=== PATIENT | male | born 1980 | race Caucasian/White ===

== ENCOUNTER 2017-03-09 18:37 | Emergency (ER) | payer MEDICAID ==
[~2017-03-09] VITALS: Ht 172.7 cm; Wt 90.7 kg
[2017-03-09 18:41] VITALS: BP 137/79
--- NOTE | 2017-03-09 18:44 | NUR ---
Patient ambulated to bed 08.
--- NOTE | 2017-03-09 18:45 | NUR ---
36/M C/O PRODUCTIVE COUGH, OVERALL BODY ACHE, SORE THROAT AND CHEST PRESSURE WHILE COUGHING. REPORTS YELLOW/BROWN PHLEGM. PT DID NOT RECEIVE FLU SHOT THIS YEAR. DENIES PMH AND RX. PT FEBRILE WITH RUNNY NOSE/CONGESTION. ALL LUNG SOUNDS CBTA, SATS 98 RA, HR 87. SKIN IS PINK/WARM/DRY; AAOX4 WITH EVEN AND STEADY GAIT; HR EVEN AND REGULAR; PATIENT POSITIONED FOR COMFORT; HOB ELEVATED; BEDRAILS UP X2; BED DOWN. ER MD MADE AWARE OF PT STATUS.
--- NOTE | 2017-03-09 19:10 | NUR ---
Patient being evaluated by physician at bedside.
[2017-03-09] MEDS ORDERED: IBUPROFEN 400 MG TAB PO ONE (20:05)
--- NOTE | 2017-03-09 20:15 | NUR ---
Patient discharged with v/s stable. Written and verbal after care instructions given and explained. Patient alert, oriented and verbalized understanding of instructions. Ambulatory with steady gait. All questions addressed prior to discharge. ID band removed. Patient advised to follow up with PMD. Rx of NAPROSYN, DEXTROMETHORPHAN HYDROBROMIDE/PROMETHAZINE HYDROCHLORIDE given. Patient educated on indication of medication including possible reaction and side effects. Opportunity to ask questions provided and answered.
[2017-03-09 21:10] VITALS: BP 119/72
== END 2017-03-09 20:15 | disposition home or self-care (01) ==
LOC: MED 18:37
DX: B34.9 Viral infection, unspecified (principal); Z71.6 Tobacco abuse counseling
CPT/HCPCS: 36415; 71010; 87804; 99285

== ENCOUNTER 2017-11-08 12:40 | Emergency (ER) | payer MEDICAID ==
[~2017-11-08] VITALS: Ht 175.3 cm; Wt 106.6 kg
[2017-11-08 13:12] VITALS: BP 143/87
--- NOTE | 2017-11-08 13:12 | NUR ---
patient ambulated to rm 3 with steady gait.
--- NOTE | 2017-11-08 13:18 | NUR ---
gave report to Renate COX
--- NOTE | 2017-11-08 13:18 | NUR ---
Notified er md kincaid of patient's status.
--- NOTE | 2017-11-08 13:30 | NUR ---
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 Patient states left sided rib pain increased with inspiration. Swelling to left wrist. Patient denies any LOC or changes in vision. Pt reports that he was wearing a hard hat when he fell. Pt is gcs=15. RR are even and unlabored. Lungs bilaterally clear. A&O x 4. Cms intact. ER MD Costa notified. Pt needs met. Safety precautions in place. Will continue to monitor.
[2017-11-08] MEDS ORDERED: NACL 0.9% 2,000 ML IV SCH (13:49)
[2017-11-08] MEDS ORDERED: fentaNYL 0.05 MG/ML VIAL IVP ONE (13:50)
--- NOTE | 2017-11-08 14:08 | NUR ---
pt taken to CT at this time without incident
[2017-11-08 14:22] LABS: BASOPHILS % (AUTO) 0.3 % (0.0-2.0); EOSINOPHILS # (AUTO) 0.3 K/uL (0-0.4); EOSINOPHILS % (AUTO) 3.3 % (0.0-4.0); HEMATOCRIT 44.5 % (36-52); LYMPHOCYTES # (AUTO) 1.4 K/uL (2.0-11.5); MEAN CORPUSCULAR HEMOGLOBIN 30 pg (27-31); MEAN CORPUSCULAR HGB CONC 34 g/dL (33-37); MEAN CORPUSCULAR VOLUME 87.6 fL (80-94); MONOCYTES # (AUTO) 0.4 K/uL (0.8-1.0); MONOCYTES % (AUTO) 4.4 % (1.7-9.3); NEUTROPHILS # (AUTO) 6.5 K/uL (1.8-7.7); PLATELET COUNT (AUTO) 121 K/uL (140-450); RED BLOOD CELL COUNT(AUTO) 5.08 MIL/uL (4.20-6.10); RED CELL DISTRIBUTION WIDTH 13.8 % (11.6-13.7); WHITE BLOOD COUNT (AUTO) 8.5 K/uL (4.8-10.8)
[2017-11-08 14:43] LABS: PROTHROMBIN TIME 10.1 secs (10.8-13.4)
[2017-11-08 14:47] LABS: CARBON DIOXIDE 28.5 mmol/L (21-32); POTASSIUM 3.5 mmol/L (3.5-5.1)
[2017-11-08 14:52] LABS: ALBUMIN 3.5 g/dL (3.4-5.0); TOTAL BILIRUBIN 0.3 mg/dL (0.0-1.0)
--- NOTE | 2017-11-08 16:29 | NUR ---
spoke with pt and his . Patient discharged with v/s stable. Written and verbal after care instructions given and explained. Patient alert, oriented and verbalized understanding of instructions. Ambulatory with steady gait. All questions addressed prior to discharge. ID band removed. Patient advised to follow up with PMD. Rx of voltaren given. Patient educated on indication of medication including possible reaction and side effects. Opportunity to ask questions provided and answered.
[2017-11-08 18:18] VITALS: BP 132/88
== END 2017-11-08 16:29 | disposition home or self-care (01) ==
LOC: MED 12:40
DX: S63.502A Unspecified sprain of left wrist, initial encounter (principal); S20.212A Contusion of left front wall of thorax, initial encounter; S00.03XA Contusion of scalp, initial encounter; W11.XXXA Fall on and from ladder, initial encounter; Y93.89 Activity, other specified; Y99.8 Other external cause status; Y92.89 Other specified places as the place of occurrence of the external cause
CPT/HCPCS: 36415; 70450; 71250; 72125; 73110; 74176; 80053; 85025; 85610; 85730; 86886; 86900; 86901; 93005; 96374; 99285; J3010

== ENCOUNTER 2018-01-29 11:41 | Emergency (ER) | payer MEDICARE ==
[~2018-01-29] VITALS: Ht 172.7 cm; Wt 105.7 kg
[2018-01-29 11:57] VITALS: BP 131/86
--- NOTE | 2018-01-29 12:00 | NUR ---
37Y/M BIB SELF SEND BY HIS DENTIST FOR C/O LT TOOTH ACHE WTIH SWOLLEN CHEEKS, SQUEEZED THIS MORNING WITH DISCHARGE; BED DOWN; BEDRAIL UP X 1; ER MD AWARE AND NOTIFIED OF PT STATUS. HX; DENIES RX; DENIES
--- NOTE | 2018-01-29 12:10 | NUR ---
Patient being evaluated by physician at bedside.
[2018-01-29] MEDS ORDERED: LIDOCAINE 1% 500 MG/50 ML VIAL INJ SCH (12:30)
[2018-01-29 13:13] VITALS: BP 128/83
--- NOTE | 2018-01-29 13:13 | NUR ---
Patient discharged with v/s stable. Written and verbal after care instructions given and explained. Patient alert, oriented and verbalized understanding of instructions. Ambulatory with steady gait. All questions addressed prior to discharge. ID band removed. Patient advised to follow up with PMD. Rx of naprosyn and norco given. Patient educated on indication of medication including possible reaction and side effects. Opportunity to ask questions provided and answered.
== END 2018-01-29 13:13 | disposition home or self-care (01) ==
LOC: MED 11:41
DX: K04.7 Periapical abscess without sinus (principal); F17.210 Nicotine dependence, cigarettes, uncomplicated
CPT/HCPCS: 41800; 99283; J2001

== ENCOUNTER 2018-02-18 07:35 | Emergency (ER) | payer MEDICARE ==
[~2018-02-18] VITALS: Ht 172.7 cm; Wt 102.5 kg
--- NOTE | 2018-02-18 07:38 | NUR ---
PATIENT AMBULATED TO BED 5 AT THIS TIME.
[2018-02-18 07:40] VITALS: BP 128/94
--- NOTE | 2018-02-18 07:41 | NUR ---
37YO M TO ER FOR L MIDDLE FINGER LAC AT 0700,BANDAGER REMOVED. FULL THIKNESS, L FINGER SKIN FLAP. 4X4 GAUZE AND PRESSURE APPLIED, BLEEDING UNDER CONTROL. L HAND ELEVATED. PT STATES THAT FINGER WAS CAUGHT IN CLOSING DOOR ON IT. NO OTHER MEDICAL C/O AT THIS TIME. WILL CONTINUE TO MONITOR, ER MADE AWARE. PT POSITIONED FOR COMFORT HX: DENIES MED: NONE
--- NOTE | 2018-02-18 07:55 | NUR ---
Patient being evaluated by physician at bedside.
[2018-02-18] MEDS ORDERED: cefTRIAXone 1,000 MG in LIDOCAINE 1% ***ER ONLY *** 2.1 ML IM ONE (08:00)
[2018-02-18] MEDS ORDERED: MORPHINE SULFATE 2 MG/ML SYR IM ONE (08:00)
[2018-02-18] MEDS ORDERED: NEOMYCIN/POLYMYXIN/BACITRACIN 0.9 GM/1 PKT TP ONE ×2 (08:00)
[2018-02-18] MEDS ORDERED: LIDOCAINE 1% 500 MG/50 ML VIAL INJ ONE (08:00)
--- NOTE | 2018-02-18 08:06 | NUR ---
XRAY AT BEDSIDE
[2018-02-18] MEDS ORDERED: cefTRIAXone 1,000 MG VIAL ONE (08:08)
--- NOTE | 2018-02-18 08:25 | NUR ---
EMT AT BEDSIDE FOR LAC CLEANING
--- NOTE | 2018-02-18 08:35 | NUR ---
DR GRIFFITH AT BEDSIDE FOR LAC SUTURING
--- NOTE | 2018-02-18 08:50 | NUR ---
FAMILY AT BEDSIDE
[2018-02-18 10:23] VITALS: BP 125/91
--- NOTE | 2018-02-18 10:23 | NUR ---
Patient discharged with v/s stable. Written and verbal after care instructions given and explained. Patient alert, oriented and verbalized understanding of instructions. Ambulatory with steady gait. All questions addressed prior to discharge. ID band removed. Patient advised to follow up with PMD. Rx of ultram, motrin, clindamycin given. Patient educated on indication of medication including possible reaction and side effects. Opportunity to ask questions provided and answered.
== END 2018-02-18 10:23 | disposition home or self-care (01) ==
LOC: MED 07:35
DX: S61.213A Laceration without foreign body of left middle finger without damage to nail, initial encounter (principal); F17.210 Nicotine dependence, cigarettes, uncomplicated; W22.8XXA Striking against or struck by other objects, initial encounter; Y93.89 Activity, other specified; Y92.89 Other specified places as the place of occurrence of the external cause; Y99.0 Civilian activity done for income or pay
CPT/HCPCS: 12002; 73140; 90471; 90715; 96372; 99284; J0696; J2001; J2270; Q0092

== ENCOUNTER 2018-08-28 15:12 | Emergency (ER) | payer BC, MEDICARE ==
[~2018-08-28] VITALS: Ht 175.3 cm; Wt 98.4 kg
[2018-08-28 15:16] VITALS: BP 128/72
--- NOTE | 2018-08-28 15:22 | NUR ---
PT AMBULATED TO ED BED 06
[2018-08-28] MEDS ORDERED: TETRACAINE HCL/PF 0.5% OPTH 4 ML BTL OP ONE (15:30)
[2018-08-28] MEDS ORDERED: FLUORESCEIN OPTH STRIP 0.6 MG OP ONE (15:30)
--- NOTE | 2018-08-28 15:38 | NUR ---
PT STATED POSSIBLE PIECE OF METAL GOT INTO HIS EYE WHILE WORKING SINCE WEDNESDAY. RT EYE APPEARS RED AND IRRITATED, TEARING. PT STATES IT HURTS TO OPEN EYE. PATIENT STATES PAIN OF 9/10 AT THIS TIME; VSS; PATIENT POSITIONED FOR COMFORT; HOB ELEVATED; BEDRAILS UP X1; BED DOWN. ER MD MADE AWARE OF PT STATUS.
[2018-08-28 15:51] VITALS: BP 128/72
--- NOTE | 2018-08-28 15:52 | NUR ---
Patient discharged with v/s stable. Written and verbal after care instructions given and explained. Patient alert, oriented and verbalized understanding of instructions. Ambulatory with steady gait. All questions addressed prior to discharge. ID band removed. Patient advised to follow up with PMD. Rx of TOBRAMYCIN AND NAPROSYN given. Patient educated on indication of medication including possible reaction and side effects. Opportunity to ask questions provided and answered.
== END 2018-08-28 15:52 | disposition home or self-care (01) ==
LOC: MED 15:12
DX: T15.01XA Foreign body in cornea, right eye, initial encounter (principal); F17.200 Nicotine dependence, unspecified, uncomplicated; X58.XXXA Exposure to other specified factors, initial encounter; Y93.89 Activity, other specified; Y92.89 Other specified places as the place of occurrence of the external cause; Y99.8 Other external cause status
CPT/HCPCS: 65222; 90715; 99284

== ENCOUNTER 2018-11-23 01:10 | Emergency (ER) | payer BC ==
[~2018-11-23] VITALS: Ht 175.3 cm; Wt 86.2 kg
--- NOTE | 2018-11-23 01:12 | NUR ---
PT AMBULATORY TO BED WITH 2 SONS
[2018-11-23 01:13] VITALS: BP 110/66
--- NOTE | 2018-11-23 01:13 | NUR ---
38/M PRESENTS TO ED WITH SONS, C/O CONSTANT SHARP BL LOWER QUADRANT PAIN AND BL LOWER BACK PAIN, X3 DAYS. PT ALSO C/O DIARRHEA X3 DAYS. REPORTS TOLERABLE NAUSEA UPON ARRIVAL TO ED, DENIES VOMITING. DENIES FEVER/CHILLS, OR DYSURIA. DENIES INJURY/TRAUMA. AOX4, SKIN NORMAL WARM AND DRY, RR EVEN AND UNLABORED. BS HYPOACTIVE X4, ABD SOFT ROUND TENDER TO BL LOWER QUADRANT AND LUQ. DENIES MED HX. 'S RX TRAMADOL WITHOUT RELIEF
--- NOTE | 2018-11-23 01:14 | NUR ---
PT STATED THAT HE IS DRIVEN BY SON TO ED
[2018-11-23] MEDS ORDERED: NACL 0.9% 1,000 ML IV ONE (01:30)
[2018-11-23] MEDS ORDERED: LOPERAMIDE 2 MG CAP PO ONE (01:30)
[2018-11-23] MEDS ORDERED: MORPHINE SULFATE 4 MG/ML SYR IVP ONE (01:30)
[2018-11-23 01:42] LABS: BASOPHILS # (AUTO) 0.1 K/uL (0.00-0.22); BASOPHILS % (AUTO) 2.7 % (0.0-2.0); EOSINOPHILS # (AUTO) 0.2 K/uL (0-0.4); EOSINOPHILS % (AUTO) 4.3 % (0.0-4.0); HEMATOCRIT 43.5 % (36-52); HEMOGLOBIN 14.8 g/dL (12.0-18.0); LYMPHOCYTES # (AUTO) 1.1 K/uL (2.0-11.5); MEAN CORPUSCULAR HEMOGLOBIN 30 pg (27-31); MEAN CORPUSCULAR HGB CONC 34 g/dL (33-37); MONOCYTES # (AUTO) 0.8 K/uL (0.8-1.0); NEUTROPHILS # (AUTO) 2.8 K/uL (1.8-7.7); NEUTROPHILS % (AUTO) 55.1 % (42.2-75.2); PLATELET COUNT (AUTO) 117 K/uL (140-450); WHITE BLOOD COUNT (AUTO) 5.1 K/uL (4.8-10.8)
--- NOTE | 2018-11-23 01:46 | NUR ---
PT TAKEN TO XR
[2018-11-23 01:49] LABS: ANION GAP 10.1 (8-16); CARBON DIOXIDE 27.2 mmol/L (21-32); POTASSIUM 3.3 mmol/L (3.5-5.1)
[2018-11-23 01:54] LABS: ALBUMIN 3.1 g/dL (3.4-5.0); MONOCYTES % (AUTO) 15.9 % (1.7-9.3); TOTAL BILIRUBIN 0.3 mg/dL (0.0-1.0)
--- NOTE | 2018-11-23 01:55 | NUR ---
PT BACK FROM XR
[2018-11-23] MEDS ORDERED: POTASSIUM CHLORIDE 10 MEQ TABER PO ONE (02:05)
[2018-11-23 02:32] VITALS: BP 119/66
--- NOTE | 2018-11-23 02:32 | NUR ---
Patient discharged with v/s stable. Written and verbal after care instructions given and explained. Patient alert, oriented and verbalized understanding of instructions. Ambulatory with steady gait. All questions addressed prior to discharge. ID band removed. Patient advised to follow up with PMD. Rx of IMODIUM, ZOFRAN given. Patient educated on indication of medication including possible reaction and side effects. Opportunity to ask questions provided and answered.
== END 2018-11-23 02:32 | disposition home or self-care (01) ==
LOC: MED 01:10
DX: T62.8X1A Toxic effect of other specified noxious substances eaten as food, accidental (unintentional), initial encounter (principal); E87.6 Hypokalemia; R10.30 Lower abdominal pain, unspecified; R19.7 Diarrhea, unspecified; Y92.89 Other specified places as the place of occurrence of the external cause
CPT/HCPCS: 36415; 74018; 80053; 85025; 96361; 96374; 99284; J2270; J7030

== ENCOUNTER 2019-01-19 03:23 | Inpatient (IN) | payer BC ==
[~2019-01-19] VITALS: Ht 175.3 cm; Wt 93.4 kg
[2019-01-19 03:28] VITALS: BP 119/85
--- NOTE | 2019-01-19 03:34 | NUR ---
PT AMBULATED TO BED 11
--- NOTE | 2019-01-19 03:41 | NUR ---
PATIENT PRESENTS TO ED WITH BLOOD IN STOOL X1 MONTH, C/O ABDOMINAL PAIN. +NAUSEA AND DIARRHEA. DENIES FEVER AND CHILLS. NKA NO PHM, SKIN IS PINK/WARM/DRY; AAOX4 WITH EVEN AND STEADY GAIT; LUNGS CLEAR BL; HR EVEN AND REGULAR; PT DENIES ANY FEVER, CP, SOB, OR COUGH AT THIS TIME; PATIENT STATES PAIN OF 6/10 AT THIS TIME; VSS; PATIENT POSITIONED FOR COMFORT; HOB ELEVATED; BEDRAILS UP X2; BED DOWN. ER MD MADE AWARE OF PT STATUS.
[2019-01-19] MEDS ORDERED: NACL 0.9% 1,000 ML IV ONE (04:27)
[2019-01-19] MEDS ORDERED: KETOROLAC 30 MG/ML VIAL IVP ONE (04:30)
--- NOTE | 2019-01-19 05:14 | NUR ---
BLOOD DRAWN AND TAKEN TO LAB.
[2019-01-19 05:23] LABS: BASOPHILS % (AUTO) 0.2 % (0.0-2.0); EOSINOPHILS % (AUTO) 0.8 % (0.0-4.0); HEMOGLOBIN 11.9 g/dL (12.0-18.0); LYMPHOCYTES # (AUTO) 2.1 K/uL (2.0-11.5); LYMPHOCYTES % (AUTO) 41.6 % (20.5-51.1); MEAN CORPUSCULAR HEMOGLOBIN 30 pg (27-31); MEAN CORPUSCULAR HGB CONC 34 g/dL (33-37); MEAN CORPUSCULAR VOLUME 87.1 fL (80-94); MONOCYTES # (AUTO) 0.5 K/uL (0.8-1.0); MONOCYTES % (AUTO) 9.9 % (1.7-9.3); NEUTROPHILS # (AUTO) 2.4 K/uL (1.8-7.7); NEUTROPHILS % (AUTO) 47.5 % (42.2-75.2); PLATELET COUNT (AUTO) 184 K/uL (140-450); RED BLOOD CELL COUNT(AUTO) 4.02 MIL/uL (4.20-6.10); RED CELL DISTRIBUTION WIDTH 15.1 % (11.6-13.7)
[2019-01-19 05:40] LABS: ALBUMIN 2.8 g/dL (3.4-5.0); ANION GAP 6.7 (8-16); CARBON DIOXIDE 32.4 mmol/L (21-32); CREATININE 0.9 mg/dL (0.7-1.3); POTASSIUM 3.1 mmol/L (3.5-5.1); TOTAL BILIRUBIN 0.4 mg/dL (0.0-1.0)
[2019-01-19] MEDS ORDERED: metroNIDAZOLE 500 MG/NS PREMIX 100 ML IV ONE (05:45)
[2019-01-19] MEDS ORDERED: POTASSIUM CHLORIDE 10 MEQ TABER PO ONE (05:55)
[2019-01-19] MEDS ORDERED: MORPHINE SULFATE 2 MG/ML SYR IVP PRN (07:25)
[2019-01-19] MEDS ORDERED: ACETAMINOPHEN 325 MG TAB PO PRN (07:25)
[2019-01-19] MEDS ORDERED: LORazepam 2 MG/ML VIAL IM/IVP PRN (07:25)
[2019-01-19] MEDS ORDERED: DOCUSATE SODIUM 100 MG GELCAP PO PRN (07:25)
[2019-01-19] MEDS ORDERED: ZOLPIDEM 5 MG TAB PO PRN (07:25)
[2019-01-19] MEDS ORDERED: HYDROcodone/APAP 5/325 MG 1 TAB TAB PO PRN (07:25)
--- NOTE | 2019-01-19 07:30 | NUR ---
Pt is resting in bed. Awaiting response from Telemetry and transfering pt.
--- NOTE | 2019-01-19 08:00 | NUR ---
Pt received [facility] ED nurse, KENNY Lindsay. Pt in bed AAOx4. No signs of acute distress at this time. IV saline lock to left AV. Baseline vitals obtained. Pt asked to have phone charged so he could talk to his . Will check orders, continue plan of care, and monitor pt for changes in condition.
--- NOTE | 2019-01-19 08:01 | NUR ---
Patient will be admitted to care of Gall stones. Admited to Telemetry. Will go to room 111B. Belongings list completed. Report to KENNY Jackson.
[2019-01-19 08:02] LABS: PROTHROMBIN TIME 9.9 secs (10.8-13.4)
--- NOTE | 2019-01-19 08:03 | NUR ---
PATIENT HAS BEEN SCREENED AND CATEGORIZED HIGH NUTRITION RISK. PATIENT WILL BE SEEN WITHIN 1-2 DAYS OF ADMISSION. 01/19/19-01/20/[address]
[2019-01-19 08:13] LABS: MAGNESIUM 2.1 mg/dL (1.8-2.4); PHOSPHORUS 3.6 mg/dL (2.5-4.9)
[2019-01-19] MEDS: NACL 0.9% 1,000 ML IV SCH (08:21)
[2019-01-19 08:55] LABS: CHOL/HDL RATIO 3.6 (1-4.5)
[2019-01-19 09:00] LABS: THYROID STIMULATING HORMONE 3.18 uIU/mL (0.34-3.74)
--- NOTE | 2019-01-19 10:00 | NUR ---
Pt in bed. Family at bedside. No signs of acute distress at this time. Will continue to assess for changes in condition.
--- NOTE | 2019-01-19 12:00 | NUR ---
Pt in bed. IV beeping. IV therapy continued after removing kink from IV tubing. Family at bedside. WIll continue to assess for changes in condition.
[2019-01-19] MEDS: metroNIDAZOLE 500 MG/NS PREMIX 100 ML IV SCH ×2 (13:36→21:09)
[2019-01-19 13:43] LABS: APPEARANCE,URINE CLEAR (CLEAR); BILIRUBIN,URINE NEGATIVE (NEGATIVE); BLOOD, URINE NEGATIVE (NEGATIVE); COLOR,URINE DARK YELLOW (YELLOW); LEUKOCYTE ESTERASE ,URINE NEGATIVE (NEGATIVE); NITRITE, URINE NEGATIVE (NEGATIVE); UGLUCOSE NEGATIVE (NEGATIVE)
[2019-01-19 13:44] LABS: BARBITURATE, URINE NEG. ng/ml (NEG <=200); BENZODIAZEPINE, URINE NEG. ng/mL (NEG <=200); CANNABINOID, URINE NEG. ng/mL (NEG <=50); COCAINE, URINE NEG. ng/mL (NEG <=300); OPIATE, URINE NEG. ng/mL (NEG <=2000); PHENCYCLIDINE SCREEN,URINE NEG. ng/mL (NEG <=25)
[2019-01-19 13:56] LABS: RBC,URINE 0-5 /HPF (0-5); WBC,URINE 0-5 /HPF (0-5)
--- NOTE | 2019-01-19 14:00 | NUR ---
Pt sleeping in bed. Aroused by voice. No signs of distress at this time. Will continue to assess for changes in condition.
[2019-01-19] MEDS ORDERED: POTASSIUM CHLORIDE 10 MEQ TABER PO SCH (15:00)
[2019-01-19] MEDS: NICOTINE TRANSD SYS 21 MG/24 HR PATCH TD SCH (15:26)
--- NOTE | 2019-01-19 15:26 | NUR ---
Pt sleeping. Pt awoken by name to receive ordered potassium and nicotine patch. Pt received teaching about medications. Pt stated he was a bit nauseated but stated he did not want anit-nausea medication. Will continue to monitor for changes in condition.
[2019-01-19 16:00] VITALS: BP 125/71
--- NOTE | 2019-01-19 16:30 | NUR ---
Pt observed grunting in bed. Pt stated pain is 6/10 and he also has nausea. Pt refused ordered morphine for pain and will try to sleep. Ordered Zofran was administered and emesis bag placed within patient's reach.
[2019-01-19] MEDS: ONDANSETRON 4 MG/2 ML VIAL IM/IVP PRN (16:33)
--- NOTE | 2019-01-19 18:30 | NUR ---
Pt in bed. pt stated he ate all of his dinner. Pt shows no signs of acute distress at this time. Will continue to assess for changes in condition.
--- NOTE | 2019-01-19 19:10 | NUR ---
Pt endorsed to night nurse Carlita. Pt in bed, but get up frequently so sequential devices not applied at this time. Pt AAOx4, IV infusing NS @ 60ml/hr to left AC. No signs of acute distress at this time.
--- NOTE | 2019-01-19 19:15 | NUR ---
RECEIVED PT FROM XIOMARA COX PT IS AAOX4 FAROESE SPEAKER IV ON LEFT AC INFUSING WELL ON TELEMETRY SR, PT AMBULATORY INITIAL ASSESSMENT DONE
[2019-01-19 20:00] VITALS: BP 122/75
--- NOTE | 2019-01-19 21:38 | NUR ---
PT ON CLEAR LIQUID DIET , WITH LIQUID STOOL AND SCAN BLOODY NOT DISTRESS NOTED AT THIS TIME, ON TELE SR
[2019-01-20] VITALS: BP 114/73
--- NOTE | 2019-01-20 | NUR ---
PT CLARIFY THAT NO BM NOTED, AND GOING TO SLEEP,ON TELEMETRY SR
[2019-01-20] MEDS: NACL 0.9% 1,000 ML IV SCH (00:58)
[2019-01-20] MEDS: ONDANSETRON 4 MG/2 ML VIAL IM/IVP PRN ×2 (01:09→08:01)
[2019-01-20 04:00] VITALS: BP 119/67
--- NOTE | 2019-01-20 04:00 | NUR ---
PT SLEEPING AFTER GIVEN ZOFRAN AND SWEATING AND ANXIOUS AFTER GIVEN MORPHINE
[2019-01-20] MEDS: metroNIDAZOLE 500 MG/NS PREMIX 100 ML IV SCH ×3 (05:11→20:37)
--- NOTE | 2019-01-20 06:45 | NUR ---
PT WILL BE ENDORSED TO DAY SHIFT NURSE FOR CONTINUE OF CARE , PT ON TELEMETRY SR DENIES ANY PAIN AT THIS TIME
[2019-01-20 07:00] LABS: ANION GAP 9.7 (8-16); CARBON DIOXIDE 28.7 mmol/L (21-32); POTASSIUM 3.4 mmol/L (3.5-5.1)
--- NOTE | 2019-01-20 07:10 | NUR ---
Pt received from night nurseCarlita RN. Pt sleeping in bed during handoff. Pt has 18 G IV to L AC with NS @ 60 ml/hr. IV site asymptomatic.Will continue to assess for changes in condition.
[2019-01-20 07:15] LABS: PHOSPHORUS 2.4 mg/dL (2.5-4.9)
[2019-01-20 07:19] LABS: BASOPHILS % (AUTO) 0.7 % (0.0-2.0); EOSINOPHILS % (AUTO) 1.1 % (0.0-4.0); HEMATOCRIT 34.9 % (36-52); HEMOGLOBIN 11.7 g/dL (12.0-18.0); LYMPHOCYTES # (AUTO) 1.6 K/uL (2.0-11.5); LYMPHOCYTES % (AUTO) 36.1 % (20.5-51.1); MEAN CORPUSCULAR HEMOGLOBIN 29 pg (27-31); MEAN CORPUSCULAR HGB CONC 33 g/dL (33-37); MEAN CORPUSCULAR VOLUME 87.1 fL (80-94); MONOCYTES # (AUTO) 0.4 K/uL (0.8-1.0); NEUTROPHILS # (AUTO) 2.3 K/uL (1.8-7.7); NEUTROPHILS % (AUTO) 53.1 % (42.2-75.2); PLATELET COUNT (AUTO) 173 K/uL (140-450); RED BLOOD CELL COUNT(AUTO) 4.01 MIL/uL (4.20-6.10); RED CELL DISTRIBUTION WIDTH 15.2 % (11.6-13.7); WHITE BLOOD COUNT (AUTO) 4.3 K/uL (4.8-10.8)
[2019-01-20 08:00] VITALS: BP 113/69
--- NOTE | 2019-01-20 08:01 | NUR ---
Pt received ordered zofran for nausea. Will continue to monitor.
[2019-01-20] MEDS: DEXT 5% / NACL 0.45% 1,000 ML IV SCH (08:06)
[2019-01-20] MEDS: SODIUM PHOS / POTASSIUM PHOS 1 PKT PDR PO SCH ×2 (10:25→21:34)
[2019-01-20] MEDS ORDERED: POTASSIUM CHLORIDE 40 MEQ, LIDOCAINE MPF 1% - 5 mL VIAL 25 MG in NACL 0.9% 250 ML IV SCH (10:30)
[2019-01-20 12:00] VITALS: BP 114/63
[2019-01-20] MEDS ORDERED: BOWEL EVACUANT DRINK 4,000 ML PDS PO SCH (12:13)
--- NOTE | 2019-01-20 13:25 | NUR ---
01/20/19 RD INITIAL ASSESSMENT COMPLETED PLEASE REFER TO NUTRITION ASSESSMENT UNDER CARE ACTIVITY FOR ESTIMATED NUTRITIONAL NEEDS. 1. CONTINUE CLEAR LIQUID DIET TOLERATED 2. RECOMMEND ENSURE CLEAR TID 3. RD PROVIDED FIBER RESTRICTION NUTRITION EDUCATION TO PATIENT AND FAMILY. EDUCATION ACCEPTED. 4. RD TO FOLLOW-UP 2-3 DAYS, HIGH RISK PHAM RIVAS RD
--- NOTE | 2019-01-20 14:20 | NUR ---
Received call from Dr. Blaine Gonzalez stating pt will have colonoscopy done today 3-3:30pm. Physician informed that pt still drinking the rest of Golytely. states it's ok, & that he needs to finish it QUINN. Pt notified, verbalized understanding & agree with plan of care.
--- NOTE | 2019-01-20 14:40 | NUR ---
Pt requested to shower. IVF held. Left AC IV wrapped with plastic. Pt able to amb to shower room with steady gait. Instructed to pull string if assistance is needed. Verbalized understanding.
[2019-01-20] MEDS ORDERED: MIDAZOLAM 2 MG/2 ML VIAL ONE (14:55)
[2019-01-20] MEDS ORDERED: fentaNYL 0.05 MG/ML VIAL ONE (14:55)
[2019-01-20] MEDS ORDERED: diphenhydrAMINE 50 MG/ML VIAL ONE (14:55)
[2019-01-20] MEDS: NICOTINE TRANSD SYS 21 MG/24 HR PATCH TD SCH (15:00)
--- NOTE | 2019-01-20 15:00 | NUR ---
Pt left via hospital bed after shower to OR for colonoscopy, accompanied by OR nurses. Pt in no distress. Left AC IV saline lock asymptomatic.
[2019-01-20] MEDS ORDERED: fentaNYL 0.05 MG/ML VIAL IVP ONE (15:33)
[2019-01-20] MEDS ORDERED: MIDAZOLAM 2 MG/2 ML VIAL IVP ONE (15:35)
[2019-01-20 16:00] VITALS: BP 99/59
--- NOTE | 2019-01-20 16:15 | NUR ---
Pt came back from colonoscopy, asleep, responsive to tactile stimuli, respirations even & nonlabored on O2 @ 2Lpm via n/c. Left AC IV intact with ongoing NS bolus of 1L. Vital signs obtained. Call light within reach. Bed alarm on. Will cont to monitor.
[2019-01-20] MEDS ORDERED: MESALAMINE 4 GM/60 ML RC SCH (17:00)
--- NOTE | 2019-01-20 18:00 | NUR ---
ATTEMPTED TO ADMINISTER ORDERED MESALAMINE, BUT PT STILL DROWSY FROM COLONOSCOPY SEDATING MEDICATIONS. VITALS WITHIN NORMAL LIMITS, PT RESPONSIVE TO VOICE AND TOUCH. WILL ENDORSE TO HOT BRAIDER
--- NOTE | 2019-01-20 19:20 | NUR ---
RECEIVED BEDSIDE REPORT FROM AM SHIFT RN XIOMARA, FOR PT'S CONTINUITY OF CARE. PT IS LYING DOWN, HALF ASLEEP, RESPONSIVE, ON 2L O2 VIA NC, HAS LEFT AC 20G WITH D5 1/2 NS INFUSING AT 60 ML/HR, AND DENIES PAIN AT THIS TIME. EXPLAINED TO PT DESK CLERK ROUTINE, PT VERBALIZED UNDERSTANDING. BED IS ON LOW POSITION, SIDE RAILS ARE UP, AND CALL LIGHT IS WITHIN REACH. WILL MONITOR PT THROUGHOUT SHIFT.
[2019-01-20] MEDS: AMITRIPTYLINE 25 MG TAB PO SCH (20:36)
[2019-01-20] MEDS: MESALAMINE 250 MG CAPER PO SCH (20:36)
[2019-01-20] MEDS: methylPREDNISolone SS 40 MG/ML VIAL IVP SCH (20:37)
--- NOTE | 2019-01-20 20:37 | NUR ---
ADMINISTERED SCHEDULED PO, IV PUSH, IV ABX MEDICATIONS ORDERED. PT TOLERATED THEM WELL. PT CURRENTLY HAVING DINNER, TOLERATING FULL LIQUID DIET WELL. WILL CONTINUE TO MONITOR PT.
--- NOTE | 2019-01-20 21:34 | NUR ---
ADMINISTERED SCHEDULED PO MEDICATION ORDERED. PT WAS ASLEEP, WOKE UP FOR THE MEDICATION AND VERBALIZED UNDERSTANDING WITH MEDICATION TEACHING. PT TOLERATED MEDICATION WELL. DENIES ANY PAIN OR N/V. WILL CONTINUE TO MONITOR PT.
--- NOTE | 2019-01-20 22:54 | NUR ---
MADE ROUNDS. PATIENT IS LYING DOWN ASLEEP, WITH NO SIGNS OF DISTRESS. WILL CONTINUE TO MONITOR PT.
[2019-01-21] VITALS: BP 109/61
[2019-01-21] MEDS: DEXT 5% / NACL 0.45% 1,000 ML IV SCH ×2 (00:30→09:10)
--- NOTE | 2019-01-21 01:00 | NUR ---
MADE ROUNDS, PATIENT LYING DOWN ASLEEP, WITH NO SIGNS OF DISTRESS. WILL CONTINUE TO MONITOR PT.
--- NOTE | 2019-01-21 04:00 | NUR ---
PT ASLEEP, WITH NO SIGNS OF DISTRESS. WILL CONTINUE TO MONITOR PT.
--- NOTE | 2019-01-21 04:35 | NUR ---
ADMINISTERED SCHEDULED IV ABX AND IV PUSH MEDICATIONS. PATIENT WAS ASLEEP, INFORMED ABOUT THE MEDICATIONS, AND DENIES PAIN AT THIS TIME. PT VERBALIZED UNDERSTANDING, AND TOLERATED MEDICATION WELL. WILL CONTINUE TO MONITOR PT.
[2019-01-21] MEDS: methylPREDNISolone SS 40 MG/ML VIAL IVP SCH ×3 (04:39→20:10)
[2019-01-21] MEDS: metroNIDAZOLE 500 MG/NS PREMIX 100 ML IV SCH ×3 (04:39→20:11)
--- NOTE | 2019-01-21 06:15 | NUR ---
PT'S IV WAS BEEPING. PT AWAKE, EATING ICE CREAM, DENIES ANY PAIN AT THIS TIME. PT IS ON RA NOW. WILL ENDORSE TO AM SHIFT RN FOR CONTINUITY OF CARE.
--- NOTE | 2019-01-21 07:08 | NUR ---
RECEIVED ENDORSEMENT FROM MARINE UNDERWRITER NURSE. PATIENT IS AAOX4, PARAGUAYAN SPEAKING. RESPIRATIONS ARE EVEN AND UNLABORED ON ROOM AIR. PATIENT DENIES ANY PAIN AT THIS TIME. LEFT AC 20G IV INTACT, PATENT, AND INFUSING IVF. PLAN OF CARE WAS REVIEWED WITH PATIENT, PATIENT VERBALIZED UNDERSTANDING. SAFETY MEASURES IN PLACE, CALL LIGHT WITHIN REACH.
[2019-01-21 07:34] LABS: BASOPHILS % (AUTO) 0.1 % (0.0-2.0); HEMATOCRIT 37.7 % (36-52); HEMOGLOBIN 12.5 g/dL (12.0-18.0); LYMPHOCYTES % (AUTO) 28.2 % (20.5-51.1); MEAN CORPUSCULAR HEMOGLOBIN 29 pg (27-31); MEAN CORPUSCULAR HGB CONC 33 g/dL (33-37); MEAN CORPUSCULAR VOLUME 87.3 fL (80-94); MONOCYTES # (AUTO) 0.1 K/uL (0.8-1.0); MONOCYTES % (AUTO) 2.8 % (1.7-9.3); NEUTROPHILS # (AUTO) 2.4 K/uL (1.8-7.7); NEUTROPHILS % (AUTO) 68.9 % (42.2-75.2); PLATELET COUNT (AUTO) 177 K/uL (140-450); RED BLOOD CELL COUNT(AUTO) 4.31 MIL/uL (4.20-6.10); RED CELL DISTRIBUTION WIDTH 15.1 % (11.6-13.7); WHITE BLOOD COUNT (AUTO) 3.5 K/uL (4.8-10.8)
[2019-01-21 08:00] VITALS: BP 116/65
[2019-01-21 08:02] LABS: ANION GAP 11.5 (8-16); CARBON DIOXIDE 28.1 mmol/L (21-32); CREATININE 0.8 mg/dL (0.7-1.3); POTASSIUM 3.6 mmol/L (3.5-5.1)
[2019-01-21 08:05] LABS: MAGNESIUM 1.9 mg/dL (1.8-2.4); PHOSPHORUS 3.5 mg/dL (2.5-4.9)
[2019-01-21 08:12] LABS: FOLIC ACID 11.1 ng/mL (>3.0)
[2019-01-21] MEDS: MESALAMINE 250 MG CAPER PO SCH ×3 (09:09→16:33)
[2019-01-21] MEDS: FERROUS SULFATE 300 MG/5 ML UDC PO SCH (09:10)
--- NOTE | 2019-01-21 09:10 | NUR ---
ADMINISTERED SCHEDULED MEDICATIONS. PATIENT TOLERATED WELL. NO OTHER NEEDS AT THIS TIME, WILL CONTINUE TO MONITOR.
--- NOTE | 2019-01-21 11:49 | NUR ---
PATIENT RESTING IN BED. DENIES ANY PAIN. NO OTHER NEEDS AT THIS TIME, WILL CONTINUE TO MONITOR.
--- NOTE | 2019-01-21 13:16 | NUR ---
ADMINISTERED SCHEDULED MEDICATIONS. PATIENT TOLERATED WELL. PATIENT ASKED TO BE GIVEN SOLID FOOD. PER DR. CASE TO ADVANCE DIET. NO OTHER NEEDS AT THIS TIME, WILL CONTINUE TO MONITOR.
[2019-01-21] MEDS: NICOTINE TRANSD SYS 21 MG/24 HR PATCH TD SCH ×2 (15:00→15:40)
--- NOTE | 2019-01-21 15:42 | NUR ---
PATIENT REFUSED NICOTINE PATCH. PATIENT STATED THAT HE DOES NOT NEED IT. NO OTHER NEEDS AT THIS TIME, WILL CONTINUE TO MONITOR.
[2019-01-21 16:00] VITALS: BP 119/61
--- NOTE | 2019-01-21 16:33 | NUR ---
ADMINISTERED SCHEDULED MEDICATION. PATIENT TOLERATED WELL. NO OTHER NEEDS AT THIS TIME, WILL CONTINUE TO MONITOR.
--- NOTE | 2019-01-21 17:58 | NUR ---
PATIENT RESTING IN BED. DENIES ANY PAIN. NO OTHER NEEDS AT THIS TIME, WILL CONTINUE TO MONITOR.
--- NOTE | 2019-01-21 19:11 | NUR ---
ENDORSED TO LOSS CONTROL REPRESENTATIVE NURSE FOR CONTINUITY OF CARE. PATIENT IS STABLE AT THIS TIME.
--- NOTE | 2019-01-21 19:15 | NUR ---
RECEIVED BEDSIDE REPORT FROM AM SHIFT RN ABILIO, FOR PT'S CONTINUITY OF CARE. PT IS LYING DOWN, AWAKE, ALERT, ORIENTED X 4, IS ON ROOM AIR, IV SITE IS ON RIGHT FOREARM 20G INFUSING WITH D5 1/2 NS AT 60ML/HR. PT STATES HE WANTS TO GO HOME, MD ALREADY INFORMED PT HE WILL BE DISCHARGED IN AM. EXPLAINED TO PT APPLICATION TECHNICAL DESIGNER ROUTINE, AND VERBALIZED UNDERSTANDING. BED IS ON LOW POSITION, SIDE RAILS ARE UP, AND CALL LIGHT WITHIN REACH. REQUESTED AND GIVEN SANDWICH AFTER DINNER. WILL MONITOR PT THROUGHOUT SHIFT.
[2019-01-21] MEDS: AMITRIPTYLINE 25 MG TAB PO SCH (20:11)
--- NOTE | 2019-01-21 20:11 | NUR ---
ADMINISTERED SCHEDULED PO, IV ABX, AND IV PUSH MEDICATIONS ORDERED. PT STATES HE HAS HARD TIME FALLING AND STAYING ASLEEP, REQUESTED FOR MEDICINE TO HELP, ADMINISTERED PRN PO MEDICATION ORDERED. PT TEACHINGS GIVEN, AND PT VERBALIZED UNDERSTANDING. WILL CONTINUE TO MONITOR PT.
--- NOTE | 2019-01-21 22:15 | NUR ---
MADE ROUNDS. PT LYING DOWN ASLEEP, WITH NO SIGNS OF ANY DISTRESS. WILL CONTINUE TO MONITOR PT.
[2019-01-22] VITALS: BP 109/55
--- NOTE | 2019-01-22 00:05 | NUR ---
VITAL SIGNS CHECKED AND CHARTED. PT IS LYING DOWN ASLEEP, WITH NO SIGNS OF DISTRESS. WILL CONTINUE TO MONITOR PT.
--- NOTE | 2019-01-22 03:00 | NUR ---
MADE ROUNDS. PATIENT LYING DOWN ASLEEP WITH NO SIGNS OF DISTRESS. WILL CONTINUE TO MONITOR PT.
[2019-01-22] MEDS: DEXT 5% / NACL 0.45% 1,000 ML IV SCH (05:10)
--- NOTE | 2019-01-22 05:10 | NUR ---
ADMINISTERED SCHEDULED IV PUSH AND IV ABX ORDERED, AND NEW IV D5 1/2 NS AT 60 ML/HR. PT ASLEEP, INFORMED ABOUT MEDICATION, PT VERBALIZED UNDERSTANDING. PATIENT DENIES PAIN, INQUIRED ABOUT BREAKFAST AND WENT BACK TO SLEEP. WILL CONTINUE TO MONITOR PT.
[2019-01-22] MEDS: metroNIDAZOLE 500 MG/NS PREMIX 100 ML IV SCH (05:19)
[2019-01-22] MEDS: methylPREDNISolone SS 40 MG/ML VIAL IVP SCH (05:20)
--- NOTE | 2019-01-22 06:30 | NUR ---
PT IS LYING DOWN, ASLEEP, WITH NO SIGNS OF DISTRESS. PT EXPECTS TO BE DISCHARGED TODAY. WILL ENDORSE TO AM SHIFT RN FOR PT'S CONTINUITY OF CARE.
[2019-01-22] MEDS ORDERED: METR250T2 PO (07:02)
[2019-01-22] MEDS ORDERED: PEN250 PO (07:02)
[2019-01-22] MEDS ORDERED: ELA25 PO (07:02)
[2019-01-22] MEDS ORDERED: FER300L PO (07:02)
--- NOTE | 2019-01-22 07:18 | NUR ---
RECEIVED ENDORSEMENT FROM BETTING AGENCY MANAGER NURSE. PATIENT IS AAOX4, DUTCH SPEAKING. RESPIRATIONS ARE EVEN AND UNLABORED ON ROOM AIR. PATIENT DENIES ANY PAIN AT THIS TIME. RIGHT FA 20G IV INTACT, PATENT, AND INFUSING IVF. PLAN OF CARE WAS REVIEWED WITH PATIENT, PATIENT VERBALIZED UNDERSTANDING. SAFETY MEASURES IN PLACE, CALL LIGHT WITHIN REACH.
[2019-01-22 08:00] VITALS: BP 117/64
[2019-01-22 08:03] LABS: HEMATOCRIT 36.1 % (36-52); LYMPHOCYTES # (AUTO) 1.6 K/uL (2.0-11.5); LYMPHOCYTES % (AUTO) 22.4 % (20.5-51.1); MEAN CORPUSCULAR HEMOGLOBIN 29 pg (27-31); MEAN CORPUSCULAR HGB CONC 33 g/dL (33-37); MEAN CORPUSCULAR VOLUME 87.3 fL (80-94); MONOCYTES # (AUTO) 0.4 K/uL (0.8-1.0); MONOCYTES % (AUTO) 5.7 % (1.7-9.3); NEUTROPHILS # (AUTO) 5.2 K/uL (1.8-7.7); NEUTROPHILS % (AUTO) 71.9 % (42.2-75.2); PLATELET COUNT (AUTO) 182 K/uL (140-450); RED BLOOD CELL COUNT(AUTO) 4.14 MIL/uL (4.20-6.10); RED CELL DISTRIBUTION WIDTH 15.1 % (11.6-13.7); WHITE BLOOD COUNT (AUTO) 7.2 K/uL (4.8-10.8)
[2019-01-22 08:35] LABS: ANION GAP 10.8 (8-16); CREATININE 0.8 mg/dL (0.7-1.3); POTASSIUM 3.8 mmol/L (3.5-5.1)
[2019-01-22 08:36] LABS: PHOSPHORUS 3.4 mg/dL (2.5-4.9)
[2019-01-22] MEDS: FERROUS SULFATE 300 MG/5 ML UDC PO SCH (08:51)
[2019-01-22] MEDS: MESALAMINE 250 MG CAPER PO SCH (08:51)
--- NOTE | 2019-01-22 08:51 | NUR ---
ADMINISTERED SCHEDULED MEDICATIONS. PATIENT TOLERATED WELL. NO OTHER NEEDS AT THIS TIME, WILL CONTINUE TO MONITOR.
--- NOTE | 2019-01-22 09:30 | NUR ---
PATIENT WAS GIVEN DISCHARGE INSTRUCTIONS. ALL QUESTIONS AND CONCERNS WERE ANSWERED. PATIENT TO BE DISCHARGED HOME. IV WAS REMOVED, CANNULA INTACT WITH MINIMAL BLEEDING. ID BAND WAS REMOVED. PATIENT AMBULATED OFF UNIT WITH STEADY GAIT ACCOMPANIED BY . ALL BELONGINGS LEFT WITH PATIENT. PATIENT IS STABLE AT THIS TIME.
== END 2019-01-22 09:30 | disposition home or self-care (01) | DRG 254 ==
LOC: MED 03:23 → MTU 07:25
PROVIDERS: ADMIT General Practice; ATTEND General Practice
PROC: 0DBL8ZX Excision of Transverse Colon, Via Natural or Artificial Opening Endoscopic, Diagnostic (ICD-10-PCS; 2019-01-20)
PROC: 0DBP8ZX Excision of Rectum, Via Natural or Artificial Opening Endoscopic, Diagnostic (ICD-10-PCS; 2019-01-20)
PROC: 0DBF8ZX Excision of Right Large Intestine, Via Natural or Artificial Opening Endoscopic, Diagnostic (ICD-10-PCS; 2019-01-20)
PROC: 0DBG8ZX Excision of Left Large Intestine, Via Natural or Artificial Opening Endoscopic, Diagnostic (ICD-10-PCS; principal; 2019-01-20 16:40)
DX: K58.0 Irritable bowel syndrome with diarrhea (principal); E43 Unspecified severe protein-calorie malnutrition; D62 Acute posthemorrhagic anemia; E83.39 Other disorders of phosphorus metabolism; E87.6 Hypokalemia; Z68.30 Body mass index [BMI] 30.0-30.9, adult; F15.10 Other stimulant abuse, uncomplicated; Z83.3 Family history of diabetes mellitus; Z82.3 Family history of stroke; F17.210 Nicotine dependence, cigarettes, uncomplicated
CPT/HCPCS: 36415; 80048; 80053; 80305; 81001; 82272; 82607; 82728; 82746; 82948; 82977; 83036; 83540; 83690; 83735; 83880; 84100; 84134; 84443; 85025; 85045; 85610; 85730; 87015; 87040; 87045; 87070; 87081; 87177; 88305; 89055; 96365; 96375; 99285; J1200; J1885; J2001; J2250; J2270; J2405; J2920; J3010; J3480; J3490; J7030

== ENCOUNTER 2019-02-06 22:58 | Emergency (ER) | payer BC ==
[~2019-02-06] VITALS: Ht 175.3 cm; Wt 98.4 kg
[~2019-02-06 22:58] MED LIST: ELA25 PO; FER300L PO; METR250T2 PO; PEN250 PO
[2019-02-06 23:05] VITALS: BP 127/82
--- NOTE | 2019-02-06 23:13 | NUR ---
AMBULATED TO ER BED 12
--- NOTE | 2019-02-06 23:14 | NUR ---
38/M PRESENTED TO ED C/O BLOODY STOOLS/DIARRHEA X 2 WEEKS. PT STATES HE WAS ADMITTED 2 WEEKS AGO FOR GI BLEED DUE TO GASTRIC ULCERS. PT HAS BEEN NON-COMPLIANT WITH MEDICATIONS. JUST STARTED ABX TODAY. STATES WAS UNABLE TO OBTAIN ABX UNTIL TODAY. STATES DOES NOT TAKE MEDICATIONS PRESCRIBED. DOES NOT KNOW NAMES OF OTHER MEDICATIONS. 8/10 PAIN LLQ PAIN. DESCRIBED SHARP INTERMITENT PAIN. NO REDNESS OR SWELLING NOTED. ROUND AND SOFT. NO TENDERNESS NOTED. NO N/V. NO FEVER. PAST MED HX GASTRIC ULCERS. RX DOES NOT REMEMBER MED NAMES. DENIES ALLERGIES.
[2019-02-06] MEDS ORDERED: KETOROLAC 30 MG/ML VIAL IM ONE (23:30)
[2019-02-06 23:37] VITALS: BP 127/82
--- NOTE | 2019-02-06 23:37 | NUR ---
Patient discharged with v/s stable. Written and verbal after care instructions given and explained. Patient verbalized understanding. Ambulatory with steady gait. All questions addressed prior to discharge. Advised to follow up with PMD.
== END 2019-02-06 23:37 | disposition home or self-care (01) ==
LOC: MED 22:58
DX: K52.9 Noninfective gastroenteritis and colitis, unspecified (principal); Z91.14 Patient's other noncompliance with medication regimen; Z79.899 Other long term (current) drug therapy; Z87.19 Personal history of other diseases of the digestive system
CPT/HCPCS: 96372; 99283; J1885

== ENCOUNTER 2020-07-14 15:27 | Emergency (ER) | payer BC ==
[~2020-07-14] VITALS: Ht 172.7 cm; Wt 109.3 kg
[~2020-07-14 15:27] MED LIST changes: +AMIT25TA39 PO; -ELA25 PO; +METR-520 PO; -METR250T2 PO
[2020-07-14 15:30] VITALS: BP 147/88
--- NOTE | 2020-07-14 15:33 | NUR ---
PT AMBULATED TO BED 2.
[2020-07-14] MEDS ORDERED: predniSONE 20 MG TAB PO ONE (16:10)
[2020-07-14 16:22] VITALS: BP 143/81
--- NOTE | 2020-07-14 16:25 | NUR ---
Patient discharged with v/s stable. Written and verbal after care instructions given and explained. Patient alert, oriented and verbalized understanding of instructions. Ambulatory with steady gait. All questions addressed prior to discharge. ID band removed. Patient advised to follow up with PMD. Rx of Prednisone, Keflex given. Patient educated on indication of medication including possible reaction and side effects. Opportunity to ask questions provided and answered.
== END 2020-07-14 16:25 | disposition home or self-care (01) ==
LOC: MED 15:27
DX: R21 Rash and other nonspecific skin eruption (principal); F12.10 Cannabis abuse, uncomplicated; Z79.899 Other long term (current) drug therapy
CPT/HCPCS: 99283; J7512

== ENCOUNTER 2020-09-03 13:11 | Emergency (ER) | payer BC ==
[~2020-09-03] VITALS: Ht 180.3 cm; Wt 104.3 kg
[2020-09-03 13:37] VITALS: BP 157/87
--- NOTE | 2020-09-03 13:58 | NUR ---
39 Y/O M BIB SELF FROM HOME, C/O PIMPLES ON R SIDE OF THE HEAD AND CHEST. PT STATES ITS ALWAYS BEEN THERE AND HE WAS HERE PREVIOUSLY FOR THE SAME CC. WAS GIVEN MEDICATION WHICH HELPED, BUT RAN OUT OF MEDICATION. PMH - DENIES ALLERGIES - NKA
[2020-09-03] MEDS ORDERED: METH4TAB1 PO (14:04)
[2020-09-03] MEDS ORDERED: [UNRECOGNIZED DRUG - CODE] PO (14:04)
[2020-09-03 14:30] VITALS: BP 157/87
--- NOTE | 2020-09-03 14:31 | NUR ---
Patient discharged with v/s stable. Written and verbal after care instructions about folliculitis, hidradenitis given and explained. Patient alert, oriented and verbalized understanding of instructions. Ambulatory with steady gait. All questions addressed prior to discharge. ID band removed. Patient advised to follow up with PMD. Rx of clindamycin, medrol given. Patient educated on indication of medication including possible reaction and side effects. Opportunity to ask questions provided and answered.
== END 2020-09-03 14:31 | disposition home or self-care (01) ==
LOC: MED 13:11
DX: L73.9 Follicular disorder, unspecified (principal); R03.0 Elevated blood-pressure reading, without diagnosis of hypertension; F15.90 Other stimulant use, unspecified, uncomplicated; Z79.899 Other long term (current) drug therapy
CPT/HCPCS: 99283

== ENCOUNTER 2023-06-09 12:10 | Emergency (ER) | payer BC ==
[~2023-06-09] VITALS: Ht 177.8 cm; Wt 108.4 kg
[~2023-06-09 12:10] MED LIST changes: +AMIT25TA PO; -AMIT25TA39 PO; +METH4TAB1 PO; +[UNRECOGNIZED DRUG - CODE] PO
[2023-06-09 12:14] VITALS: BP 130/81; PULSE 63; RESP 20; TEMP 98.2; O2SAT 98
[2023-06-09 14:12] LABS: BASOPHILS % (AUTO) 0.3 % (0.0-2.0); EOSINOPHILS # (AUTO) 0.2 K/uL (0-0.4); EOSINOPHILS % (AUTO) 3.9 % (0.0-4.0); HEMATOCRIT 47.6 % (36-52); HEMOGLOBIN 16.3 g/dL (12.0-18.0); LYMPHOCYTES # (AUTO) 1.5 K/uL (2.0-11.5); LYMPHOCYTES % (AUTO) 27.5 % (20.5-51.1); MEAN CORPUSCULAR HEMOGLOBIN 30 pg (27-31); MEAN CORPUSCULAR HGB CONC 34 g/dL (33-37); MEAN CORPUSCULAR VOLUME 87.3 fL (80-94); MONOCYTES # (AUTO) 0.9 K/uL (0.8-1.0); NEUTROPHILS # (AUTO) 2.8 K/uL (1.8-7.7); NEUTROPHILS % (AUTO) 52.3 % (42.2-75.2); PLATELET COUNT (AUTO) 126 K/uL (140-450); RED BLOOD CELL COUNT(AUTO) 5.45 MIL/uL (4.20-6.10); RED CELL DISTRIBUTION WIDTH 14.6 % (11.6-13.7); WHITE BLOOD COUNT (AUTO) 5.3 K/uL (4.8-10.8)
[2023-06-09 14:12] LABS: APPEARANCE,URINE CLEAR (CLEAR); BILIRUBIN,URINE NEGATIVE (NEGATIVE); BLOOD, URINE NEGATIVE (NEGATIVE); COLOR,URINE YELLOW (YELLOW); LEUKOCYTE ESTERASE ,URINE NEGATIVE (NEGATIVE); NITRITE, URINE NEGATIVE (NEGATIVE); PROTEIN,URINE NEGATIVE (NEGATIVE); UGLUCOSE NEGATIVE (NEGATIVE); UROBILINOGEN,URINE 0.2 EU/dL (0.2 - 1)
[2023-06-09 14:20] LABS: ANION GAP 9.3 (8-16); CALCIUM 9.1 mg/dL (8.5-10.1); CARBON DIOXIDE 30.6 mmol/L (21-32); POTASSIUM 3.9 mmol/L (3.5-5.1)
[2023-06-09 14:26] LABS: ALBUMIN 3.6 g/dL (3.4-5.0); BILIRUBIN,DIRECT 0.1 mg/dL (0.0-0.3); TOTAL BILIRUBIN 0.4 mg/dL (0.0-1.0); TOTAL PROTEIN, SERUM 7.5 g/dL (6.4-8.2)
[2023-06-09] MEDS ORDERED: DICYCLOMINE HCL LIQUID 20 MG, ALUMINUM HYD/MAG/SIMETHICONE 30 ML, LIDOCAINE VISCOUS 2% ... PO ONE ×3 (14:50)
[2023-06-09] MEDS ORDERED: ACETAMINOPHEN EXTRA STRENGTH 500 MG TAB PO ONE (14:50)
[2023-06-09] MEDS ORDERED: FAMOTIDINE 20 MG TAB PO ONE (14:50)
[2023-06-09] MEDS ORDERED: MAG355OR2 PO (14:53)
[2023-06-09] MEDS ORDERED: PANT40EC56 PO (14:53)
[2023-06-09] MEDS ORDERED: ONDA-188 PO (14:53)
[2023-06-09] MEDS ORDERED: DICYCLOMINE HCL LIQUID 10 MG/5 ML UDC ONE (14:57)
[2023-06-09] MEDS ORDERED: ALUMINUM HYD/MAG/SIMETHICONE 30 ML UDC ONE (14:57)
[2023-06-09 16:12] VITALS: O2SAT 98
== END 2023-06-09 15:09 | disposition home or self-care (01) ==
LOC: MED 12:10
DX: K29.71 Gastritis, unspecified, with bleeding (principal); Z87.891 Personal history of nicotine dependence; Z79.899 Other long term (current) drug therapy; Z79.2 Long term (current) use of antibiotics
CPT/HCPCS: 36415; 80048; 80076; 81003; 83690; 85025; 99284